=== PATIENT | female | born 1955 | race African-American/Black ===

== ENCOUNTER 2017-11-10 04:39 | Emergency (ER) | payer OTHER ==
[~2017-11-10] VITALS: Ht 157.5 cm; Wt 106.4 kg
[~2017-11-10 04:39] MED LIST: ALBU8.5H8 IH; AMLO-511 PO; ATEN100T PO; FLUT1AER PO; HYDR-3971; LEVO100T4 PO; OMEP10 PO; PIOG15TA6 PO; SIMV5TAB2 PO
[2017-11-10] MEDS ORDERED: OXYB5 PO (04:46)
[2017-11-10] MEDS ORDERED: PANT40TA25 PO (04:46)
[2017-11-10] MEDS ORDERED: GABA-531 PO (04:46)
[2017-11-10] MEDS ORDERED: MONT10TA21 PO (04:46)
[2017-11-10] MEDS ORDERED: SPIR25 PO (04:46)
[2017-11-10 05:25] LABS: BASOPHILS % (AUTO) 0.8 % (0.0-2.0); EOSINOPHILS % (AUTO) 2.4 % (1.0-6.0); HEMATOCRIT 44.2 % (36-46); HEMOGLOBIN 14.8 g/dL (12.0-16.0); LYMPHOCYTES # (AUTO) 0.5 K/uL (1.0-4.8); LYMPHOCYTES % (AUTO) 9.8 % (22.0-44.0); MEAN CORPUSCULAR HEMOGLOBIN 29.1 pg (26.0-34.0); MEAN CORPUSCULAR HGB CONC 33.6 G/dL (31.0-37.0); MEAN CORPUSCULAR VOLUME 87 fL (80-100); MONOCYTES # (AUTO) 0.9 K/uL (0.1-1.0); MONOCYTES % (AUTO) 18.7 % (2.0-9.0); NEUTROPHILS # (AUTO) 3.2 K/uL (1.8-7.7); NEUTROPHILS % (AUTO) 68.3 % (40.0-70.0); PLATELET COUNT (AUTO) 178 K/uL (150-450); RED BLOOD CELL COUNT(AUTO) 5.11 MIL/uL (4.00-5.20)
[2017-11-10 05:35] LABS: CALCIUM, TOTAL 8.9 mg/dL (8.8-10.5); CREATININE 1.24 mg/dL (0.60-1.30); POTASSIUM 4.3 mmol/L (3.5-5.1)
[2017-11-10 05:41] LABS: ALBUMIN 3.2 g/dL (3.4-5.0); BILIRUBIN,TOTAL 0.6 mg/dL (0.1-1.0); TOTAL PROTEIN, SERUM 6.3 g/dL (6.4-8.2)
[2017-11-10] MEDS ORDERED: ALBUTEROL SULFATE 2.5 MG/0.5 ML NEB SOLUTION NEB ONE (06:15)
[2017-11-10] MEDS ORDERED: IPRATROPIUM BROMIDE 0.5 MG/2.5 ML NEB SOLUTION NEB ONE (06:15)
[2017-11-10 06:18] LABS: INFLUENZA TYPE A NEGATIVE FOR TYPE A (NEGATIVE); INFLUENZA TYPE B NEGATIVE FOR TYPE B (NEGATIVE)
[2017-11-10 07:00] VITALS: BP 166/95
== END 2017-11-10 07:20 | disposition home or self-care (01) ==
LOC: EMS 04:39
DX: J44.9 Chronic obstructive pulmonary disease, unspecified (principal); J40 Bronchitis, not specified as acute or chronic
CPT/HCPCS: 36415; 71045; 80053; 84484; 85025; 87804; 93005; 94640; 99285; J7613

== ENCOUNTER 2019-07-06 09:50 | Emergency (ER) | payer OTHER ==
[~2019-07-06] VITALS: Ht 157.5 cm; Wt 118.2 kg
[~2019-07-06 09:50] MED LIST changes: -AMLO-511 PO; +AMLO5TAB9 PO; +GABA-531 PO; +MONT10TA21 PO; +OXYB5 PO; +PANT40TA25 PO; +SPIR25 PO
[2019-07-06] MEDS ORDERED: METO50 PO (09:54)
[2019-07-06] MEDS ORDERED: TIOT185 IH (09:54)
[2019-07-06] MEDS ORDERED: CYCLOBENZAPRINE HCL 10 MG TABLET PO ONE (12:00)
[2019-07-06] MEDS ORDERED: KETOROLAC TROMETHAMINE 30 MG/ML VIAL IM ONE (12:00)
[2019-07-06] MEDS ORDERED: DEXAMETHASONE SOD PHOS 4 MG/ML 5 ML VIAL IM ONE (12:00)
[2019-07-06 14:05] VITALS: BP 127/79
== END 2019-07-06 14:15 | disposition home or self-care (01) ==
LOC: EMS 09:51
DX: M53.3 Sacrococcygeal disorders, not elsewhere classified (principal); G89.29 Other chronic pain; E11.9 Type 2 diabetes mellitus without complications; E03.9 Hypothyroidism, unspecified; I10 Essential (primary) hypertension; J44.9 Chronic obstructive pulmonary disease, unspecified; F32.9 Major depressive disorder, single episode, unspecified; F17.210 Nicotine dependence, cigarettes, uncomplicated; Z79.899 Other long term (current) drug therapy; Z88.8 Allergy status to other drugs, medicaments and biological substances
CPT/HCPCS: 81002; 82962; 96372; 99283; J1100; J1885

== ENCOUNTER 2019-12-05 10:21 | Inpatient (IN) | payer OTHER ==
[~2019-12-05] VITALS: Ht 160 cm; Wt 99.3 kg
[~2019-12-05 10:21] MED LIST changes: +METO50 PO; +TIOT185 IH
[2019-12-05] MEDS ORDERED: IPRATROPIUM BROMIDE 0.5 MG/2.5 ML NEB SOLUTION NEB ONE (11:00)
[2019-12-05] MEDS ORDERED: ALBUTEROL SULFATE 5 MG/ML 20 ML NEB SOLN [BULK] NEB ONE (11:00)
[2019-12-05] MEDS ORDERED: MethylPREDNISolone SOD SUCC 125 MG/2 ML VIAL IVP ONE (11:15)
[2019-12-05 11:17] LABS: BASOPHILS % (AUTO) 0.7 % (0.0-2.0); EOSINOPHILS % (AUTO) 0.2 % (1.0-6.0); HEMATOCRIT 48.6 % (36-46); HEMOGLOBIN 15.7 g/dL (12.0-16.0); LYMPHOCYTES # (AUTO) 0.9 K/uL (1.0-4.8); LYMPHOCYTES % (AUTO) 18.1 % (22.0-44.0); MEAN CORPUSCULAR HEMOGLOBIN 28.2 pg (26.0-34.0); MEAN CORPUSCULAR HGB CONC 32.3 G/dL (31.0-37.0); MEAN CORPUSCULAR VOLUME 87 fL (80-100); MONOCYTES # (AUTO) 0.9 K/uL (0.1-1.0); MONOCYTES % (AUTO) 18.6 % (2.0-9.0); NEUTROPHILS # (AUTO) 3.1 K/uL (1.8-7.7); NEUTROPHILS % (AUTO) 62.4 % (40.0-70.0); PLATELET COUNT (AUTO) 152 K/uL (150-450); RED BLOOD CELL COUNT(AUTO) 5.56 MIL/uL (4.00-5.20)
[2019-12-05] MEDS ORDERED: CYCL10 PO (11:17)
[2019-12-05] MEDS ORDERED: FLUT1BLS IH (11:17)
[2019-12-05] MEDS ORDERED: CHL25 PO (11:17)
[2019-12-05] MEDS ORDERED: COMP5 PO (11:17)
[2019-12-05] MEDS ORDERED: FEXO1TAB8 PO (11:17)
[2019-12-05] MEDS ORDERED: ATOR20TA86 PO (11:17)
[2019-12-05] MEDS ORDERED: GLIP10 PO (11:17)
[2019-12-05] MEDS ORDERED: LOSA-88 PO (11:17)
[2019-12-05] MEDS ORDERED: FLUT16H NASAL (11:17)
[2019-12-05] MEDS ORDERED: RANI150T7 PO (11:17)
[2019-12-05] MEDS ORDERED: HYDR-4455 PO (11:17)
[2019-12-05] MEDS ORDERED: ASPI-728 PO (11:17)
[2019-12-05] MEDS ORDERED: FAMO20 PO (11:17)
[2019-12-05] MEDS ORDERED: CHOL500050 PO (11:24)
[2019-12-05] MEDS ORDERED: FEXO-59 PO (11:24)
[2019-12-05] MEDS ORDERED: HYDR-4061 PO (11:24)
[2019-12-05] MEDS ORDERED: 0.9% SODIUM CHLORIDE 5 ML NEB SOLUTION NEB ONE (11:35)
[2019-12-05 11:36] LABS: CALCIUM, TOTAL 9.8 mg/dL (8.8-10.5); CREATININE 1.44 mg/dL (0.60-1.30); POTASSIUM 3.9 mmol/L (3.5-5.1)
[2019-12-05 11:55] LABS: ALBUMIN 3.8 g/dL (3.4-5.0); BILIRUBIN,TOTAL 0.6 mg/dL (0.1-1.0); TOTAL PROTEIN, SERUM 7.4 g/dL (6.4-8.2)
[2019-12-05] MEDS ORDERED: 0.9% SODIUM CHLORIDE 10 ML SYRINGE IVP PRN (12:45)
[2019-12-05] MEDS ORDERED: AZITHROMYCIN 250 MG TABLET PO ONE (12:45)
[2019-12-05] MEDS: ACETAMINOPHEN 325 MG TABLET PO PRN ×2 (12:45→20:03)
[2019-12-05 15:41] VITALS: BP 129/73
[2019-12-05] MEDS ORDERED: MORPHINE SULFATE 2 MG/ML SYRINGE IVP PRN (22:00)
[2019-12-05] MEDS ORDERED: BISACODYL 10 MG RECTAL RECTAL SUPPOSITORY PR PRN (22:00)
[2019-12-05] MEDS ORDERED: OxyCODONE HCL/ACETAMINOPHEN 5-325 MG TABLET PO PRN (22:00)
[2019-12-05] MEDS ORDERED: IPRATROPIUM BROMIDE 0.5 MG/2.5 ML NEB SOLUTION NEB PRN (22:00)
[2019-12-05] MEDS ORDERED: ALBUTEROL SULFATE 2.5 MG/0.5 ML NEB SOLUTION NEB PRN (22:00)
[2019-12-05] MEDS ORDERED: ACETAMINOPHEN 325 MG TABLET PO PRN (22:00)
[2019-12-05] MEDS ORDERED: MAGNESIUM HYDROXIDE SUSPENSION 30 ML UDCUP PO PRN (22:00)
[2019-12-05 22:05] VITALS: BP 139/74
[2019-12-05] MEDS: LOSARTAN POTASSIUM 50 MG TABLET PO SCH (23:09)
[2019-12-05] MEDS: ATORVASTATIN CALCIUM 20 MG TABLET PO SCH (23:09)
[2019-12-05] MEDS: OXYBUTYNIN CHLORIDE 5 MG TABLET PO SCH (23:10)
[2019-12-05] MEDS: MethylPREDNISolone SOD SUCC 125 MG/2 ML VIAL IVP SCH (23:10)
[2019-12-05] MEDS: HEPARIN SODIUM,PORCINE 5,000 UNITS/ML VIAL SQ SCH (23:10)
[2019-12-06] VITALS (7 sets, daily range): BP systolic 122–142; BP diastolic 62–89
[2019-12-06] MEDS: GlipiZIDE 10 MG TABLET PO SCH (06:24)
[2019-12-06] MEDS: LEVOTHYROXINE SODIUM 100 MCG TABLET PO SCH (06:24)
[2019-12-06] MEDS: MethylPREDNISolone SOD SUCC 125 MG/2 ML VIAL IVP SCH ×4 (06:24→22:35)
[2019-12-06 07:01] LABS: GLUCOMETER DEV NAME(LOC) 5N.2; GLUCOSE,POINT OF CARE 143 MG/DL (70-110)
[2019-12-06] MEDS: OXYBUTYNIN CHLORIDE 5 MG TABLET PO SCH ×2 (08:08→20:45)
[2019-12-06] MEDS: HEPARIN SODIUM,PORCINE 5,000 UNITS/ML VIAL SQ SCH ×3 (08:08→22:35)
[2019-12-06] MEDS: CYCLOBENZAPRINE HCL 10 MG TABLET PO SCH ×2 (08:08→20:45)
[2019-12-06] MEDS: MONTELUKAST SODIUM 10 MG TABLET PO SCH (08:08)
[2019-12-06] MEDS: CHLORTHALIDONE 25 MG TABLET PO SCH (08:08)
[2019-12-06] MEDS: SPIRONOLACTONE 25 MG TABLET PO SCH (08:08)
[2019-12-06] MEDS: ATENOLOL 100 MG TABLET PO SCH (08:08)
[2019-12-06] MEDS: DOCUSATE SODIUM 100 MG CAPSULE PO SCH ×2 (08:13→20:35)
[2019-12-06] MEDS ORDERED: RANITIDINE HCL 150 MG TABLET PO SCH (09:00)
[2019-12-06] MEDS ORDERED: PANTOPRAZOLE SODIUM 40 MG DR TABLET PO SCH (09:00)
[2019-12-06] MEDS: IPRATROPIUM BROMIDE 0.5 MG/2.5 ML NEB SOLUTION NEB SCH ×5 (10:07→22:33)
[2019-12-06] MEDS: ALBUTEROL SULFATE 2.5 MG/0.5 ML NEB SOLUTION NEB SCH ×5 (10:07→22:33)
[2019-12-06] MEDS: PANTOPRAZOLE SODIUM 40 MG DR TABLET PO SCH (11:35)
[2019-12-06] MEDS: FEXOFENADINE HCL 60 MG TABLET PO SCH (11:35)
[2019-12-06] MEDS: ONDANSETRON HCL 4 MG/2 ML VIAL IVP PRN ×2 (12:31→20:47)
[2019-12-06] MEDS: ATORVASTATIN CALCIUM 20 MG TABLET PO SCH (20:45)
[2019-12-06] MEDS: LOSARTAN POTASSIUM 50 MG TABLET PO SCH (20:45)
[2019-12-06] MEDS: HYDROCODONE/ACETAMINOPHEN 10-325 MG TABLET PO PRN (20:46)
[2019-12-06] MEDS: ZOLPIDEM TARTRATE 5 MG TABLET PO PRN (20:46)
[2019-12-06] MEDS: FAMOTIDINE 20 MG TABLET PO SCH (20:51)
[2019-12-07] VITALS (7 sets, daily range): BP systolic 103–141; BP diastolic 68–83
[2019-12-07] MEDS: HYDROCODONE/ACETAMINOPHEN 10-325 MG TABLET PO PRN ×2 (02:41→19:41)
[2019-12-07] MEDS: IPRATROPIUM BROMIDE 0.5 MG/2.5 ML NEB SOLUTION NEB SCH ×6 (03:05→23:42)
[2019-12-07] MEDS: ALBUTEROL SULFATE 2.5 MG/0.5 ML NEB SOLUTION NEB SCH ×6 (03:05→23:42)
[2019-12-07] MEDS: LEVOTHYROXINE SODIUM 100 MCG TABLET PO SCH (05:40)
[2019-12-07] MEDS: MethylPREDNISolone SOD SUCC 125 MG/2 ML VIAL IVP SCH ×3 (05:41→17:57)
[2019-12-07] MEDS: GlipiZIDE 10 MG TABLET PO SCH (05:46)
[2019-12-07] MEDS: DOCUSATE SODIUM 100 MG CAPSULE PO SCH ×2 (08:33→19:41)
[2019-12-07] MEDS: CYCLOBENZAPRINE HCL 10 MG TABLET PO SCH ×2 (08:33→19:40)
[2019-12-07] MEDS: PANTOPRAZOLE SODIUM 40 MG DR TABLET PO SCH (08:33)
[2019-12-07] MEDS: OXYBUTYNIN CHLORIDE 5 MG TABLET PO SCH ×2 (08:34→19:41)
[2019-12-07] MEDS: FEXOFENADINE HCL 60 MG TABLET PO SCH (08:34)
[2019-12-07] MEDS: HEPARIN SODIUM,PORCINE 5,000 UNITS/ML VIAL SQ SCH ×3 (08:34→23:40)
[2019-12-07] MEDS: SPIRONOLACTONE 25 MG TABLET PO SCH (08:34)
[2019-12-07] MEDS: CHLORTHALIDONE 25 MG TABLET PO SCH (08:35)
[2019-12-07] MEDS: ATENOLOL 100 MG TABLET PO SCH (08:36)
[2019-12-07] MEDS: MONTELUKAST SODIUM 10 MG TABLET PO SCH (08:36)
[2019-12-07] MEDS ORDERED: CHOLECALCIFEROL (VIT D3) 50,000 UNITS CAPSULE PO SCH (09:00)
[2019-12-07] MEDS: LOSARTAN POTASSIUM 50 MG TABLET PO SCH (19:40)
[2019-12-07] MEDS: FAMOTIDINE 20 MG TABLET PO SCH (19:40)
[2019-12-07] MEDS: ATORVASTATIN CALCIUM 20 MG TABLET PO SCH (19:40)
[2019-12-07] MEDS: ZOLPIDEM TARTRATE 5 MG TABLET PO PRN (23:43)
[2019-12-07] MEDS ORDERED: MethylPREDNISolone SOD SUCC 125 MG/2 ML VIAL IVP ONE (23:59)
[2019-12-08] MEDS: ALBUTEROL SULFATE 2.5 MG/0.5 ML NEB SOLUTION NEB SCH ×4 (03:00→16:18)
[2019-12-08] MEDS: IPRATROPIUM BROMIDE 0.5 MG/2.5 ML NEB SOLUTION NEB SCH ×4 (03:00→16:18)
[2019-12-08] MEDS: LEVOTHYROXINE SODIUM 100 MCG TABLET PO SCH (05:57)
[2019-12-08] MEDS: GlipiZIDE 10 MG TABLET PO SCH (05:57)
[2019-12-08] MEDS: INSULIN LISPRO 100 UNITS/ML SQ PRN ×2 (06:45→17:04)
[2019-12-08] MEDS ORDERED: DEXTROSE 50%-WATER 25 GM/50 ML SYRINGE IVP PRN (06:45)
[2019-12-08 07:34] LABS: GLUCOMETER DEV NAME(LOC) 6N.1; GLUCOSE,POINT OF CARE 190 MG/DL (70-110)
[2019-12-08] MEDS: HEPARIN SODIUM,PORCINE 5,000 UNITS/ML VIAL SQ SCH ×2 (08:21→15:24)
[2019-12-08] MEDS: FEXOFENADINE HCL 60 MG TABLET PO SCH (08:22)
[2019-12-08] MEDS: DOCUSATE SODIUM 100 MG CAPSULE PO SCH (08:22)
[2019-12-08] MEDS: SPIRONOLACTONE 25 MG TABLET PO SCH (08:22)
[2019-12-08] MEDS: CYCLOBENZAPRINE HCL 10 MG TABLET PO SCH (08:23)
[2019-12-08] MEDS: PANTOPRAZOLE SODIUM 40 MG DR TABLET PO SCH (08:23)
[2019-12-08] MEDS: CHLORTHALIDONE 25 MG TABLET PO SCH (08:23)
[2019-12-08] MEDS: OXYBUTYNIN CHLORIDE 5 MG TABLET PO SCH (08:23)
[2019-12-08] MEDS: ATENOLOL 100 MG TABLET PO SCH (08:24)
[2019-12-08] MEDS: MONTELUKAST SODIUM 10 MG TABLET PO SCH (08:24)
[2019-12-08 08:44] VITALS: BP 137/89
[2019-12-08] MEDS ORDERED: PredniSONE 20 MG TABLET PO SCH (09:00)
[2019-12-08 11:30] VITALS: BP 120/73
[2019-12-08 11:42] LABS: GLUCOMETER DEV NAME(LOC) 6N.1; GLUCOSE,POINT OF CARE 121 MG/DL (70-110)
[2019-12-08 15:38] VITALS: BP 126/85
[2019-12-08] MEDS ORDERED: GuaiFENesin [SUGAR-FREE] 200 MG/10 ML SOLUTION UDCUP PO PRN (16:00)
[2019-12-08 17:13] LABS: GLUCOMETER DEV NAME(LOC) 6N.1; GLUCOSE,POINT OF CARE 213 MG/DL (70-110)
[2019-12-08] MEDS ORDERED: PRED5 PO ×2 (18:09→18:15)
[2019-12-08] MEDS ORDERED: GUAIF10 PO (18:10)
== END 2019-12-08 18:45 | disposition home or self-care (01) | DRG 202 ==
LOC: EMS 10:22 → 5S 15:01 → 4E 12-06 17:10
PROVIDERS: ADMIT Hospitalist; ATTEND Hospitalist
DX: J20.9 Acute bronchitis, unspecified (principal); J44.1 Chronic obstructive pulmonary disease with (acute) exacerbation; J44.0 Chronic obstructive pulmonary disease with (acute) lower respiratory infection; E78.5 Hyperlipidemia, unspecified; I10 Essential (primary) hypertension; E03.9 Hypothyroidism, unspecified; E11.9 Type 2 diabetes mellitus without complications; G89.29 Other chronic pain; M54.9 Dorsalgia, unspecified; F32.9 Major depressive disorder, single episode, unspecified; F17.210 Nicotine dependence, cigarettes, uncomplicated; Z88.8 Allergy status to other drugs, medicaments and biological substances
CPT/HCPCS: 93005; 94640; G0378; J1644; J2405; J2930

== ENCOUNTER 2024-01-29 19:38 | Emergency (ER) | payer OTHER ==
[~2024-01-29] VITALS: Ht 157.5 cm; Wt 89.0 kg
[~2024-01-29 19:38] MED LIST changes: -AMLO5TAB9 PO; +ASPI-1450 PO; -ATEN100T PO; +ATEN100T92 PO; +ATOR20TA PO; +CHL25 PO; +CHOL500050 PO; +CYCL-448 PO; +FAMO20 PO; +FEXO-270 PO; +FLUT16SP NASAL; -FLUT1AER PO; +FLUT1BLS IH; -GABA-531 PO; +GLIP10TA10 PO; +GUAIF10 PO; -HYDR-3971; +HYDR-4061 PO; +LOSA-382 PO; -METO50 PO; +MONT-35 PO; -MONT10TA21 PO; -OMEP10 PO; -OXYB5 PO; +OXYB5TAB20 PO; -PANT40TA25 PO; -PIOG15TA6 PO; +PRED5TAB2 PO; +PROC5TAB54 PO; +RANI150T7 PO; -SIMV5TAB2 PO; +SPIR-37 PO; -SPIR25 PO; -TIOT185 IH
[2024-01-29 19:47] VITALS: TEMP 98
[2024-01-29 20:00] LABS: GLUCOMETER DEV NAME(LOC) ER.6; GLUCOSE,POINT OF CARE 154 MG/DL (70-110)
[2024-01-29] MEDS ORDERED: LOSA100T59 PO (20:12)
[2024-01-29] MEDS ORDERED: GABA-1181 PO (20:12)
[2024-01-29] MEDS ORDERED: COMP10 PO (20:12)
[2024-01-29] MEDS ORDERED: DULA0.75 SQ (20:12)
[2024-01-29] MEDS ORDERED: ESOM20CA39 PO (20:12)
[2024-01-29] MEDS ORDERED: IPRA3AMP24 NEB (20:12)
[2024-01-29] MEDS ORDERED: BUDE10.7 IH (20:12)
[2024-01-29] MEDS ORDERED: THEO200C4 PO (20:12)
[2024-01-29] MEDS ORDERED: ALBU18HF12 IH (20:12)
[2024-01-29] MEDS ORDERED: PRAV10TA2 PO (20:12)
[2024-01-29 21:07] LABS: TROPONIN I-HIGH SENSITIVITY 5 ng/L (<51)
[2024-01-29] MEDS: ONDANSETRON HCL 4 MG/2 ML VIAL IM ONE (21:08)
[2024-01-29] MEDS: HYDROmorphone HCL 2 MG/ML SYRINGE IM ONE (21:09)
[2024-01-29 21:50] VITALS: BP 116/54; PULSE 92; RESP 20
[2024-01-29] MEDS ORDERED: HYDR-4062 PO (22:32)
== END 2024-01-29 22:52 | disposition home or self-care (01) ==
LOC: EMS 19:45
DX: S46.812A Strain of other muscles, fascia and tendons at shoulder and upper arm level, left arm, initial encounter (principal); M19.012 Primary osteoarthritis, left shoulder; J44.9 Chronic obstructive pulmonary disease, unspecified; E11.9 Type 2 diabetes mellitus without complications; Z88.5 Allergy status to narcotic agent; W20.8XXA Other cause of strike by thrown, projected or falling object, initial encounter; Y93.89 Activity, other specified; Y92.89 Other specified places as the place of occurrence of the external cause; Y99.8 Other external cause status
CPT/HCPCS: 99285; 71045; 82962; 83690; 84484; 36415; 73030; 93005; 96372; J1170; J2405